=== PATIENT | female | born 1970 | race Caucasian/White ===

== ENCOUNTER 2019-09-10 10:40 | Emergency (ER) | payer BC, SELFPAY ==
--- NOTE | ~2019-09-10 | XR_ITS ---
XR humerus LT 09/10/2019 11:36 Indication: Left shoulder pain after recent fall Procedure: 2 views left humerus Comparison: No prior studies for comparison. Findings: There is a minimally displaced comminuted proximal left humeral fracture involving the kiersten ral neck and greater tuberosity. Glenohumeral joint and anatomic alignment. No other fracture identif ied. Impression: 1: Minimally displaced comminuted proximal left humeral neck fracture extending to the greater tubero sity. Reviewed, dictated and finalized at location A. Impression: 1: Minimally displaced comminuted proximal left humeral neck fracture extending to the greater tuberosity.
[2019-09-10 10:46] VITALS: BP 133/58; PULSE 112; RESP 20; TEMP 36.9; O2SAT 96
--- NOTE | 2019-09-10 10:57 | ED.GENADULT ---
HPI - General Adult General Chief complaint: Extremity Injury, Upper Stated complaint: Left arm injury Time Seen by Provider: 09/10/19 10:59 Source: patient Mode of arrival: ambulatory Limitations: no limitations History of Present Illness HPI narrative: 49-year-old female patient presents to the [facility] with complaints of left upper arm pain. 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 Patient states that she has broken her right arm before in the past and states that this pain feels very similar. Patient is unable to lift her left arm at all. Patient is very tender to the touch. Patient states that she put herself in a homemade sling to come in today. Patient states she is taken Tylenol twice already today for the pain. Related Data Home Medications Medication Instructions Recorded Confirmed albuterol sulfate [ProAir HFA] 2 puff INHALATION QID PRN 09/10/19 09/10/19 alprazolam 0.25 mg PO BID PRN 09/10/19 09/10/19 Allergies Allergy/AdvReac Type Severity Reaction Status Date / Time amoxicillin Allergy Itching Verified 09/10/19 11:01 watermelon Allergy Hives Verified 09/10/19 11:02 Review of Systems Review of Systems: Narrative: CONSTITUTIONAL: Denies fever, chills, or sweats. EYES: Denies visual changes, redness, or discharge. ENT: Denies rhinorrhea, congestion, sore throat, or otalgia. CARDIOVASCULAR: Denies chest pain, palpitations, or edema. RESPIRATORY: Denies cough or dyspnea. GASTROINTESTINAL: Denies abdominal pain, nausea, vomiting, or diarrhea. GENITOURINARY: Denies dysuria or hematuria. SKIN: Denies rash or itching. MUSCULOSKELETAL: Denies back pain, joint pain, or myalgia. Positive left upper arm pain NEUROLOGIC: Denies headache, numbness, or weakness. PSYCHIATRIC: Denies anxiety or depression. PMFSH Comments At the time of my signature I agree with nursing past medical history, surgical, social, and family history. There is no relevant family history pertinent to the presenting complaint. Exam Narrative: Exam Narrative: GENERAL: Well-appearing, well-nourished, and in no acute distress. HEAD: Normocephalic, atraumatic. EYES: PERRLA and EOMI. ENT: Nares clear, no rhinorrhea or epistaxis. Mucous membranes moist. NECK: Supple. No lymphadenopathy CHEST: Clear to auscultation. No respiratory distress. HEART: Regular rate and rhythm. No murmur heard. Normal peripheral pulses. ABDOMEN: Soft, nontender, nondistended, normal active bowel sounds. EXTREMITIES: The L upper arm is without obvious asymmetry or deformity when compared to the right upper arm. No obvious surface trauma, ecchymosis or soft tissue swelling. No bony tenderness to palpation of the left humerus or the lateral or medial epicondyle, olecranon, or radial head. No epicondylar or axillary lymphadenopathy. Pain with flexion, extension, unable to supination, pronation. Normal muscle strength. Intact motor and sensation of ulnar, median, and radial nerves. Patient unable to raise left shoulder. Patient does complain of pain when the left elbow and lower arm is manipulated stating that the pain radiates up to the top of the left humerus SKIN: Warm, dry, no rash. NEURO: No focal deficits. Alert and oriented x3. Course Reevaluation(s) Reevaluation #1: Reevaluated patient. Discussed with patient that it does appear that she has a humeral head fracture on the left side of the shoulder. Discussed with her that our plan of care is to go ahead and place her in a sling and have her follow-up with orthopedic surgery. I did call the orthopedic surgeon that was corrections sergeant today Dr. Talbot and spoke with his nurse and she has arranged to have an appointment for follow-up on 09/13/2019 at noon. Discussed with patient I will discharge her home with some [place] to help with the pain and that she can continue to ice i
== END 2019-09-10 12:00 | disposition home or self-care (01) ==
PROVIDERS: Emergency Provider Nurse Practitioner Family; PCP Internal Medicine
DX: S42.212A Unspecified displaced fracture of surgical neck of left humerus, initial encounter for closed fracture (principal); S42.252A Displaced fracture of greater tuberosity of left humerus, initial encounter for closed fracture; F41.9 Anxiety disorder, unspecified; W18.39XA Other fall on same level, initial encounter; R03.0 Elevated blood-pressure reading, without diagnosis of hypertension
CPT/HCPCS: 73060; 99203; 99204; A4565; G0463